=== PATIENT | female | born 1970 | race Caucasian/White ===

== ENCOUNTER 2016-11-25 17:54 | Emergency (ER) | payer OTHER ==
[2016-11-25 20:43] VITALS: BP 138/78
[2016-11-25] MEDS ORDERED: HYDROcodone/ACETAMIN 5-325 MG* 1 TAB PO ONE ×2 (21:59→23:14)
[2016-11-25] MEDS ORDERED: Dexamethasone IV* 4 MG/ML 1 ML (4 MG) IM ONE (21:59)
[2016-11-25] MEDS ORDERED: Cyclobenzaprine TAB* 10 MG PO ONE (21:59)
--- NOTE | 2016-11-25 22:07 | ED ---
Back Pain - HPI Summary HPI Summary: 46 female presents to ED with complaints of thoracic right sided back pain that has been ongoing for the past few months and worsening over the past couple of days. Patient states ibuprofen used to help her pain however it has not been helping. Unable to sleep last night due to the pain. Nothing makes pain better or worse. Constant dull ache. Denies trauma and known injury. Works in a flower shop, and does do frequent heavy lifting. Denies bruising, swelling and obvious deformity. No other complaints at this time. No PMHx. Last ibuprofen was last night she took over a long period of time ~ 15 pills without relief. Describes pain to be dull and aching and then sharp with movement. Denies trouble breathing, chest pain, radiation of pain, abdominal pain, nausea and vomiting. No PMHx. No other medications or complaints at this time. No recent long distance travel. Did try heating pad which allowed her to get some sleep last night. Denies numbness/tingling, saddle anesthesia, bladder/bowel incontinence and weakness of upper and lower extremities. - History of Current Complaint Chief Complaint: EDBackInjuryPain Stated Complaint: BACK PAIN Time Seen by Provider: 11/25/16 21:09 Hx Obtained From: Patient Onset/Duration: Sudden Onset, Lasting Weeks, Still Present, Worse Since Onset/Duration: Started Weeks Ago, Still Present Timing: Constant - worse at times Back Pain Location: Is Discrete @ - thoracic upper right back T6-T7 Severity Initially: Moderate Severity Currently: Severe Pain Intensity: 8 Pain Scale Used: 0-10 Numeric Character: Sharp, Dull, Aching, Spasmodic Aggravating Symptom(s): Movement Alleviating Symptom(s): Rest, Heat, OTC Meds - ibuprofen used to give relief, however is no longer helping Associated Signs And Symptoms: Negative: Swelling, Redness, Bruising, Weakness, Numbness, Tingling, Abdominal Pain, Bladder Incontinence, Bowel Incontinence, Pain with Weight Bearing - Risk Factors AAA Risk Factors: Smoking TAD Risk Factors: Negative Cauda Equina Risk Factors: Negative Epidural Abscess Risk Factors: Negative - Allergies/Home Medications Allergies/Adverse Reactions: Allergies Allergy/AdvReac Type Severity Reaction Status Date / Time No Known Allergies Allergy Verified 11/25/16 22:17 PMH/Surg Hx/FS Hx/Imm Hx Endocrine/Hematology History: Denies: Hx Diabetes Cardiovascular History: Denies: Hx Hypertension Respiratory History: Denies: Hx Asthma, Hx Chronic Obstructive Pulmonary Disease (COPD) Musculoskeletal History: Denies: Hx Arthritis, Hx of Fracture(s) - Cancer History Hx Chemotherapy: No Hx Radiation Therapy: No - Surgical History Surgery Procedure, Year, and Place: n/a - Immunization History Immunizations Up to Date: Yes Infectious Disease History: No Infectious Disease History: Denies: Traveled Outside the [place] in Last 30 Days - Family History Known Family History: Positive: None - Social History Alcohol Use: Occasionally Substance Use Type: Reports: None Smoking Status (MU): Current Every Day Smoker Review of Systems Constitutional: Negative Cardiovascular: Negative Respiratory: Negative Gastrointestinal: Negative Positive: Arthralgia, Myalgia - right thoracic back Skin: Negative Neurological: Negative All Other Systems Reviewed And Are Negative: Yes Physical Exam Triage Information Reviewed: Yes Vital Signs On Initial Exam: Initial Vitals Temp Pulse Resp BP Pulse Ox 97.5 F 85 20 138/79 100 11/25/16 18:27 11/25/16 18:27 11/25/16 18:27 11/25/16 18:27 11/25/16 18:27 Vital Signs Reviewed: Yes Appearance: Positive: Well-Appearing, Well-Nourished, Pain Distress - mild with movement/changing positions Skin: Positive: Warm, Skin Color Reflects Adequate Perfusion, Dry. Negative: Cold, Numb, Cyanosis @, Pale, Erythema @ Head/Face: Positive: Normal Head/Face Inspection Eyes: Positive: Conjunctiva Clear ENT: Positive: Hearing grossly normal Neck: Positive: Supple, Nontender Respiratory/Lung Sounds: Positive: Clear to Auscultation, Breath Sounds Present. Negative: Rales, Rhonchi, Wheezes Cardiovascular: Positive: Normal, RRR, Pulses are Symmetrical in both Upper and Lower Extremities - 2+. Negative: Murmur, Rub Abdomen Description: Positive: Nontender, No Organomegaly, Soft. Negative: Bruit, CVA Tenderness (R), CVA Tenderness (L), Distended, Guarding, Peritoneal Signs, Pulsatile Mass Bowel Sounds: Positive: Present Musculoskeletal: Positive: Normal, Strength/ROM Intact, Pain @ - on palpation of right throacic paraspinal muscle at level of T5-T7 over trapezius muscle. Negative: Limited @, Interruption @, Edema Left, Edema Right Neurological: Positive: Normal, Sensory/Motor Intact, Alert, Oriented to Person Place, Time, NV Bundle Intact Distally, Normal Gait Diagnostics - Vital Signs Vital Signs Temp Pulse Resp BP Pulse Ox 11/25/16 20:35 99.0 F 86 16 138/78 100 11/25/16 18:27 97.5 F 85 20 138/79 100 - Laboratory Lab Statement: Any lab studies that have been ordered have been reviewed, and results considered in the medical decision making process. - Radiology thoracic spine Xray Interpretation: No Acute Changes - unremarkable thoracic spine xray Radiology Interpretation Completed By: ED Physician chest Xray Interpretation: No Acute Changes - unremarkable chest xray Radiology Interpretation Completed By: ED Physician Re-Evaluation - Re-Evaluation First Eval Re-Evaluation Time: 23:06 Change: Improved - had relief after pain medications administered, updated on xray results. Back Pain Course/Dx - Course Course Of Treatment: xray obtained and negative for acute findings both chest and thoracic. given norco, dexamethasone, flexeril while in ED, has significant relief. Normal vitals. Appears to be a muscle strain at this time. continue medication prescribed at home, heating pad and rest. Refrain from over use. no concern for any other emergent etiology. no PMH or risk factors. recommend massage. follow up with PCP. Aware of worsening signs and symptoms. Return if occur. - Diagnoses Differential Diagnosis/HQI/PQRI: Positive: Fracture, Herniated Disc, Strain, Sprain Provider Diagnoses: Back pain, Muscle strain of right upper back Discharge - Discharge Plan Condition: Stable Disposition: HOME Prescriptions: Cyclobenzaprine TAB* [Flexeril 10 MG TAB*] 10 mg PO BEDTIME #10 tab HYDROcodone/ACETAMIN 5-325 MG* [[place] 5-325 TAB*] 1 tab PO Q6H PRN #15 tab MDD 4 PRN Reason: Pain predniSONE TAB* [Deltasone TAB*] 20 mg PO DAILY #2 tab Patient Education Materials: Back Pain (ED), Muscle Strain (ED) Referrals: Jason Carlos MD [Primary Care Provider] - Additional Instructions: Continue taking medications as directed to help with pain and inflammation, starting tomorrow. Supplement with ibuprofen no more than 600mg every 6-8 hours, with food. Stop if you get an upset stomach. Rest, avoid overuse and apply heating pad. Recommend massaging, or getting a professional massage if able. Any new or worsening symptoms please seek medical attention promptly, as discussed. Follow up with PCP to ensure improvement, or for further evaluation or work up if required.
--- NOTE | 2016-11-26 07:29 | RAD ---
INDICATION: Back pain evaluate for cardiopulmonary etiology. COMPARISON: There are no prior studies available for comparison. TECHNIQUE: Dual-energy PA and lateral views of the chest were obtained. FINDINGS: The heart is within normal limits in size. Mediastinal and hilar contours appear within normal limits. The lungs are clear. No pleural effusion is present. IMPRESSION: NO EVIDENCE FOR ACTIVE CARDIOPULMONARY DISEASE.
--- NOTE | 2016-11-26 07:32 | RAD ---
INDICATION: Dorsal spine pain. COMPARISON: There are no prior studies available for comparison. TECHNIQUE: AP and lateral films of the dorsal spine were obtained. FINDINGS: The vertebra are in normal alignment. No fracture is seen. There is mild diffuse degenerative disc disease throughout the mid and lower dorsal spine. IMPRESSION: MILD DEGENERATIVE DISC DISEASE.
== END 2016-11-25 23:18 | disposition home or self-care (01) ==
LOC: ED 17:54
DX: S29.012A Strain of muscle and tendon of back wall of thorax, initial encounter (principal); M54.9 Dorsalgia, unspecified; X58.XXXA Exposure to other specified factors, initial encounter; Y93.9 Activity, unspecified; Y92.9 Unspecified place or not applicable
CPT/HCPCS: 71020; 72070; 96372; 99282; A9270-GY; J1100

== ENCOUNTER 2016-12-10 09:46 | Emergency (ER) | payer OTHER ==
[2016-12-10 10:07] VITALS: BP 115/69
--- NOTE | 2016-12-10 10:20 | UC ---
Back Pain HPI - HPI Summary HPI Summary: 46 yo female with right thoracic back pain x 1 1/2 -2 months pain waxes and wanes but does not go away completely seen in ER about 2 weeks ago Chest XR and T-S films normal no bowel/bladder dysfunction no wt loss no UTI symptoms no abd pain no relieve with NSAIDs - History of Current Complaint Chief Complaint: UCBackPain Stated Complaint: BACK PAIN Time Seen by Provider: 12/10/16 10:09 Hx Obtained From: Patient Hx Last Menstrual Period: 12/08/16 Onset/Duration: Gradual Onset, Lasting Weeks Timing: Constant Severity Initially: Moderate Severity Currently: Moderate Pain Intensity: 8 Pain Scale Used: 0-10 Numeric Back Pain: Is Discrete @ - see image Character: Sharp, Aching Aggravating Factor(s): Movement - at times, Lifting - at times, Bending - at times Alleviating Factor(s): Nothing Associated Signs And Symptoms: Positive: Negative - Allergies/Home Medications Allergies/Adverse Reactions: Allergies Allergy/AdvReac Type Severity Reaction Status Date / Time No Known Allergies Allergy Verified 11/25/16 22:17 PMH/Surg Hx/FS Hx/Imm Hx Previously Healthy: Yes - Surgical History Surgical History: None Surgery Procedure, Year, and Place: n/a - Family History Known Family History: Positive: Hypertension - Social History Alcohol Use: Occasionally Substance Use Type: None Smoking Status (MU): Current Every Day Smoker Type: Cigarettes Review of Systems Constitutional: Negative Skin: Negative Eyes: Negative ENT: Negative Respiratory: Negative Cardiovascular: Negative Gastrointestinal: Negative Genitourinary: Negative Motor: Negative Neurovascular: Negative Musculoskeletal: Myalgia Neurological: Negative Psychological: Negative Is Patient Immunocompromised?: No All Other Systems Reviewed And Are Negative: Yes Physical Exam Triage Information Reviewed: Yes Appearance: Well-Appearing, No Pain Distress, Well-Nourished Vital Signs: Initial Vital Signs Temp 97.7 F 12/10/16 10:02 Pulse 95 12/10/16 10:02 Resp 16 12/10/16 10:02 BP 115/69 12/10/16 10:02 Pulse Ox 100 12/10/16 10:02 Vital Signs Reviewed: Yes Eyes: Positive: Conjunctiva Clear ENT: Positive: Hearing grossly normal. Negative: Nasal congestion, Nasal drainage, Muffled voice Neck: Positive: Supple, Nontender, No Lymphadenopathy Respiratory: Positive: Lungs clear, Normal breath sounds, No respiratory distress Cardiovascular: Positive: RRR, No Murmur Abdomen Description: Positive: Nontender, No Organomegaly, Soft. Negative: Bruit, CVA Tenderness (R), CVA Tenderness (L) Musculoskeletal: Positive: ROM Intact, No Edema Neurological: Positive: Alert, Muscle Tone Normal Psychological Exam: Normal Skin Exam: Normal Back Pain Course/Dx - Differential Dx/Diagnosis Provider Diagnoses: right thoracic back pain of uncertain cause Discharge - Discharge Plan Condition: Stable Disposition: HOME Prescriptions: Cyclobenzaprine TAB* [Flexeril TAB*] 5 mg PO TID PRN #15 tab PRN Reason: Spasms HYDROcodone/ACETAMIN 5-325 MG* [[place] 5-325 TAB*] 1 tab PO Q4H PRN #15 tab MDD 2 PRN Reason: Pain Patient Education Materials: Back Pain (ED) Referrals: [facility]FERRAL [Outside] - As Soon As Possible Additional Instructions: aleve 2 pills twice daily with food for pain call the physician referral center to help you find a doctor/you need to find a doctor to follow and work you up for this back pain PT consult Images Front/Back of Body, Lg ([place]): 1 - pain here/non tender /full ROM
== END 2016-12-10 10:57 | disposition home or self-care (01) ==
LOC: UCEAST 09:46
DX: M54.9 Dorsalgia, unspecified (principal); F17.210 Nicotine dependence, cigarettes, uncomplicated
CPT/HCPCS: 81003; 99212; G0463

== ENCOUNTER 2018-12-17 17:20 | Emergency (ER) | payer SELFPAY ==
[2018-12-17] MEDS ORDERED: NS 0.9% 1000 ML** 1,000 ML IV ONE (17:23)
--- NOTE | 2018-12-17 17:29 | ED ---
Headache - HPI Summary HPI Summary: 48 year old F presenting to [facility], brought to Room 12 immediately from triage upon arrival to ED, complains of sudden onset headache rated 9/10 in severity with associated blurred vision, diaphoresis, and worsening slurred speech, drowsiness, and weakness which started while she was drinking alcohol at a bar minutes ago prior to arrival. [id number] reports that patient developed acute right occipital headache at 17:00 today which corresponds to aneurysm shown on CTA. Patient states she went drinking at a bar today 15:00, and had 1 shot of vodka and several beers. Patient states she drinks alcohol often but not daily. Patient states she suddenly developed headache at the bar, and had her drop her off at the ED. No head trauma, fall, or injury. No hx migraines. States she has never had sx like these before. FHx: brother recently from aneurysm and stroke. Symptoms aggravated by nothing. Symptoms alleviated by nothing. Patient denies fever, chills, erythema of eyes, sore throat, chest pain, shortness of breath, cough, abdominal pain, nausea/vomiting , dysuria, hematuria, myalgia, edema, rash, or dizziness. Patient states she takes hydrocodone for chronic back pain. CODE LAURENT 17:24. - History Of Current Complaint Stated Complaint: HEADACHE PER Time Seen by Provider: 12/17/18 17:23 Hx Obtained From: Patient Onset/Duration: Sudden Onset, Started minutes ago, Still Present Currently Pain Is: Current Pain Scale(0-10)= - 9, Severe Timing: Constant Aggravating Factor: Nothing Allevating Factors: Nothing Associated Signs And Symptoms: Negative - fever, chills, erythema of eyes, sore throat, chest pain, shortness of breath, cough, abdominal pain, nausea/vomiting , dysuria, hematuria, myalgia, edema, rash, or dizziness, Other (Noted In Comments) - blurred vision, diaphoresis, worsening slurred speech, weakness, and drowsiness - Allergies/Home Medications Allergies/Adverse Reactions: Allergies Allergy/AdvReac Type Severity Reaction Status Date / Time No Known Allergies Allergy Verified 11/25/16 22:17 Home Medications: Home Medications NK [No Home Medications Reported] 12/17/18 [History Confirmed 12/17/18] PMH/Surg Hx/FS Hx/Imm Hx Endocrine/Hematology History: Denies: Hx Diabetes Cardiovascular History: Denies: Hx Hypertension Respiratory History: Denies: Hx Asthma, Hx Chronic Obstructive Pulmonary Disease (COPD) Musculoskeletal History: Denies: Hx Arthritis Neurological History: Denies: Hx Headaches, Hx Migraine - Cancer History Hx Chemotherapy: No Hx Radiation Therapy: No - Surgical History Surgery Procedure, Year, and Place: n/a Infectious Disease History: Denies: History Other Infectious Disease - Family History Known Family History: Positive: Hypertension, Other - brother from aneurysm and stroke - Social History Alcohol Use: Occasionally Substance Use Type: Reports: None Hx Tobacco Use: Yes Smoking Status (MU): Current Every Day Smoker Type: Cigarettes Review of Systems Positive: Skin Diaphoresis, Other - drowsiness. Negative: Fever, Chills Positive: Blurred Vision. Negative: Erythema Negative: Sore Throat Negative: Chest Pain Negative: Shortness Of Breath, Cough Negative: Abdominal Pain, Vomiting, Nausea Negative: dysuria, hematuria Negative: Myalgia, Edema Negative: Rash Neurological: Negative - Dizziness Positive: Headache, Weakness, Slurred Speech All Other Systems Reviewed And Are Negative: Yes Physical Exam - Summary Physical Exam Summary: Constitutional: Well-developed, Well-nourished, Alert. Patient is moaning in pain and appears photophobic Skin: Warm, Dry HENT: Normocephalic; Atraumatic Eyes: Conjunctiva normal Neck: Musculoskeletal ROM normal neck. (-) JVD, (-) Stridor, (-) Tracheal deviation Cardio: Rhythm regular, rate normal, Heart sounds normal; Intact distal pulses; The pedal pulses are 2+ and symmetric. Radial pulses are 2+ and symmetric. (-) Murmur Pulmonary/Chest wall: Effort normal. (-) Respiratory distress, (-) Wheezes, (-) Rales Abd: Soft. (-) Tenderness, (-) Distension, (-) Guarding, (-) Rebound Musculoskeletal: (-) Edema Lymph: (-) Cervical adenopathy Neuro: Alert, Oriented x3, Strength normal, Cranial nerves II-XII are grossly intact. (-) Dysmetria, (-) Nystagmus, (-) Ataxia by finger to nose testing, (-) Sensory deficit. Speech is slightly slurred Psych: Mood and affect Normal GCS: 15 Triage Information Reviewed: Yes Vital Signs Reviewed: Yes Procedures - Sedation Patient Received Moderate/Deep Sedation with Procedure: No Diagnostics - Laboratory Result Diagrams: 12/17/18 17:29 12/17/18 17:29 Lab Statement: Any lab studies that have been ordered have been reviewed, and results considered in the medical decision making process. - Radiology CXR Radiology Interpretation Completed By: Radiologist Summary of Radiographic Findings: No acute cardiopulmonary process by radiograph. ED physician has reviewed this report. - CT Brain CT Interpretation Completed By: Radiologist Summary of CT Findings: 1. Subarachnoid hemorrhage centered in the basal cisterns as above. 2. Developing hydrocephalus relative comparison imaging. These findings were discussed with Dr. Pettit at a 5:54 PM on December 29, 2018. ED physician has reviewed this report. Head CTA CT Interpretation Completed By: Radiologist Summary of CT Findings: No occlusion or significant stenosis in the arteries of the neck. ED physician has reviewed this report. Cervical spine CT Interpretation Completed By: Radiologist Summary of CT Findings: No acute findings in the cervical spine. ED physician has reviewed this report. Re-Evaluation - Re-Evaluation First Eval Re-Evaluation Time: 17:55 Change: Unchanged Comment: Dr. Davis, radiology, called to report CT Brain findings of subarachnoid hemorrhage Second Eval Re-Evaluation Time: 18:29 Change: Unchanged Comment: patient informed of CT Brain findings. patient agreeable to transfer Headache Course/Dx - Course Course Of Treatment: 48 year old F brought to Room 12 immediately from triage upon arrival to ED complains of sudden onset headache with associated blurred vision, diaphoresis, and worsening slurred speech, drowsiness, and weakness which started after drinking 1 shot of vodka and several beers at a bar minutes ago prior to arrival. No hx migraines. States she has never had sx like these before. FHx: brother recently from aneurysm and stroke. Upon exam, the patient is moaning in pain and appears photophobic. Her speech is slightly slurred. Bloodwork results with no significant abnormalities except for WBC 12.8, Hgb 8.6, Hct 29, MCV 67, MCH 20, MCHC 30, RDW 20, MPV 10.5, APTT 21.3, sodium 134, potassium 3.0, CO2 17, anion gap 14, glucose 165. CT Brain shows, per radiologist: 1. Subarachnoid hemorrhage centered in the basal cisterns as above. 2. Developing hydrocephalus relative comparison imaging. Daughter-in- law reports that patient developed acute right occipital headache at 17:00 today which corresponds to aneurysm shown on CTA. CXR shows, per radiologist: No acute cardiopulmonary process by radiograph. Head CTA shows, per radiologist : No occlusion or significant stenosis in the arteries of the neck. CT Cervical spine shows, per radiologist: No acute findings in the cervical spine. In the ED course, the patient was given normal saline fluids 1 L IV, Benadryl 25 mg IV, Reglan 10 mg IV, and morphine [address] IV[address] 17:55 Dr. Davis, radiology, calls to report CT Brain findings of subarachnoid hemorrhage. Helicopters not flying this evening d/t icy conditions. 18:[address] Cadena, neurologist at [facility], who agrees to admit patient to Room 9F which is neuro ICU at [facility]. The patient will be transferred to [facility] neuro ICU Room 9F. The patient is agreeable. - Diagnoses Provider Diagnoses: Subarachnoid hemorrhage During the Visit The Following Alert/Code Occurred: Code Laurent - 17:24 - Physician Notifications Time Discussed With Above Provider: 18:05 Instructed by Provider To: Other - Spoke with Dr. Cadena, neurologist at [facility], who agrees to admit patient to Room 9F which is neuro ICU at [facility]. - Critical Care Time Critical Care Time: 30-74 min - 60 minutes Discharge ED - Sign-Out/Discharge Documenting (check all that apply): Patient Departure - Transfer - Discharge Plan Condition: Good Disposition: TRANS HIGHER LVL OF CARE FAC Referrals: Jason Carlos MD [Primary Care Provider] - - Billing Disposition and Condition Condition: GOOD Disposition: Trans Higher Lvl of Care Fac - Attestation Statements Document Initiated by Scribe: Yes Documenting Scribe: Kala Chopra Provider For Whom Scribe is Documenting (Include Credential): Prosper Pettit MD Scribe Attestation: Kala Damon, scribed for Prosper Pettit MD on 12/17/18 at 1835. Scribe Documentation Reviewed: Yes Provider Attestation: The documentation as recorded by the scribeKala accurately reflects the service I personally performed and the decisions made by me, Prosper Pettit MD Status of Scribe Document: Viewed
[2018-12-17] MEDS ORDERED: diPHENhydraMINE IV* 50 MG/ML 1 ml VIAL (BENADRYL) IV ONE (17:34)
[2018-12-17] MEDS ORDERED: Metoclopramide IV* 5 MG/ML 2 ML VIAL IV SLOW PU ONE (17:34)
[2018-12-17 17:49] LABS: Hematocrit 29 % (35-47); Hemoglobin 8.6 g/dL (12.0-16.0); Mean Corpuscular HGB Conc 30 g/dL (31-36); Mean Corpuscular Hemoglobin 20 pg (27-31); Mean Corpuscular Volume 67 fL (80-97); Mean Platelet Volume 10.5 fL (7.4-10.4); Platelet Count 235 10^3/uL (150-450); Red Blood Count 4.35 10^6 /uL (3.70-4.87); Red Cell Distribution Width 20 % (10-15); White Blood Count 12.8 10^3/uL (3.5-10.8)
[2018-12-17] MEDS ORDERED: Iodixanol* (CONTRAST) 320 MG/ML 100 ML SDV IV ONE (17:53)
[2018-12-17 17:57] LABS: Activated Partial Thrombo Time 21.3 seconds (26.0-38.0); INR 0.83 (0.82-1.09)
[2018-12-17] MEDS ORDERED: Morphine 4 MG/ML VIAL (1 ml) 4 MG/ML VIAL IV ONE ×2 (18:03→18:47)
[2018-12-17 18:06] LABS: Albumin 4.3 g/dL (3.2-5.2); Albumin/Globulin Ratio 1.5 (1-3); BUN/Creatinine Ratio 11.3 (8-20); EGFR African American 105.9 (>60); EGFR Non-African American 87.5 (>60); Globulin 2.8 g/dL (2-4); HDL Cholesterol 43.3 mg/dL; Total Bilirubin 0.3 mg/dL (0.2-1.0); Total Protein 7.1 g/dL (6.4-8.9)
[2018-12-17 18:07] LABS: Troponin I 0.01 ng/mL (<0.04)
[2018-12-17 18:25] LABS: ABS Basophils 0.2 10^3/ul (0-0.2); ABS Eosinophils 0.2 10^3/ul (0-0.6); ABS Lymphocytes 4.7 10^3/ul (1.0-4.8); ABS Monocytes 0.8 10^3/ul (0-0.8); ABS Neutrophils 6.8 10^3/ul (1.5-7.7); Eosinophil % 1.8 %; Lymphocyte % 36.7 %
[2018-12-17 18:26] LABS: Microcytosis 2+
[2018-12-17 19:53] VITALS: BP 123/71
== END 2018-12-17 19:20 | disposition short-term general hospital (02) ==
LOC: ED 17:20
DX: I60.9 Nontraumatic subarachnoid hemorrhage, unspecified (principal); F17.210 Nicotine dependence, cigarettes, uncomplicated
CPT/HCPCS: 36415; 70450; 70496; 70498; 71045; 72125; 80053; 80061; 80320; 83605; 83721; 84484; 85025; 85060; 85610; 85730; 93005; 96361; 96374; 96375; 96376; 99285; G0480; J1200; J2270; J2765; Q9967